=== PATIENT | male | born 1955 | race Caucasian/White ===

== ENCOUNTER 2020-03-15 15:39 | Outpatient (CLI) | payer OTHER, SELFPAY ==
--- NOTE | ~2020-03-15 | XR_ITS ---
EXAMINATION: XR abdomen/kub 1V DATE: 03/15/2020 16:15 INDICATION: One week of constipation TECHNIQUE: A supine view of the abdomen on 2 radiographs was obtained. COMPARISON: CT abdomen and pelvis dated 12/09/2016 FINDINGS: Small amount of gas and stool scattered throughout the colon. No dilated loops of gas-filled bowel to suggest obstruction. A few phleboliths in the pelvis. Mild elevation of the left hemidiaphragm. Mild bilateral sacral iliac osteoarthritis. IMPRESSION: 1. Normal bowel gas pattern with small amount of colonic gas and stool. Reviewed, dictated and finalized at location A.
== END 2020-03-15 15:40 | disposition home or self-care (01) ==
LOC: ANHIMG 15:44
PROVIDERS: PCP Family Medicine; Visit Provider Family Medicine
DX: R10.9 Unspecified abdominal pain (principal)
CPT/HCPCS: 74018

== ENCOUNTER 2020-04-07 01:50 | Outpatient (CLI) | payer OTHER, SELFPAY ==
[2020-04-07 18:09] LABS: SARS-CoV-2 RNA PCR Negative
== END 2020-04-07 01:51 | disposition home or self-care (01) ==
LOC: ANHCOVIDDT 01:50
PROVIDERS: PCP Family Medicine; Visit Provider Internal Medicine Gastroenterology
DX: Z01.818 Encounter for other preprocedural examination (principal); Z11.59 Encounter for screening for other viral diseases
CPT/HCPCS: 87635; C9803; U0003

== ENCOUNTER 2020-04-10 03:06 | Day surgery (SDC) | payer OTHER, SELFPAY ==
[2020-04-03 14:06] VITALS: BMI 34.4
[2020-04-10 06:58] VITALS: BP 162/97; PULSE 63; RESP 18; TEMP 36.8; O2SAT 99; BMI 33.4
[2020-04-10] MEDS: LACTATED RINGERS 1,000 ML 150 ML IV CONT (07:08)
--- NOTE | 2020-04-10 07:49 | WPDANESEPPF ---
Anes - Initial Pre Proc Eval Procedure: Operation Date: 04/10/20 08:15 Proposed Procedures p Screening Colonoscopy - Bautista Vaughan MD Date/Time: 04/10/20 07:49 Surgeon: Bautista Vaughan MD Pre Op Diagnosis: neoplasm screening Patient Data Age: 65 Gender: M Height: 6 ft Weight: 111.9 kg Last Vital Signs Temp 36.8 C 04/10/20 06:58 Pulse 63 04/10/20 06:58 Resp 18 04/10/20 06:58 BP 162/97 H 04/10/20 06:58 Pulse Ox 99 04/10/20 06:58 Allergies Allergy/AdvReac Type Severity Reaction Status Date / Time No Known Allergies Allergy Verified 04/10/20 06:57 Home Medications Medication Instructions Recorded Confirmed Type peg 3350-electrolytes 236 240 ml PO Q10M #4000 ml 03/26/20 Rx gram-22.74 gram-6.74 gram-5.86 gram solution oxybutynin chloride 5 mg PO DAILY 04/03/20 04/03/20 History Patient hx anesthesia problems: none Family hx anesthesia problems: none PMF Family History Family History Father Family history of throat cancer, Onset Age: 75 Social History Social History Smoking status: Former smoker Smoking end date: 09/28/89 Alcohol intake: current Anes - Eval Final PreProcedure Day of Procedure 04/10/20 07:49 Patient weight: obese Heart: regular rate and rhythm Lungs: clear to auscultation Airway: Mallampati scale class II Neurological: alert and oriented Last oral intake: >/= 8 hours ASA classification: II Emergent: no Anesthetic plan: proceed Anesthesia type and monitoring: general GIVS and standard monitoring Informed Consent: The patient's anesthetic plan and its attendant risks and benefits were discussed with the patient/family/POA. Questions were solicited and answers provided to the satisfaction of the patient/family/POA.
--- NOTE | 2020-04-10 08:31 | PM.HPGS ---
History of Present Illness History of Present Illness Consent: Risks, benefits, and alternatives have been discussed and questions answered. Patient agrees to proceed with procedure. Chief complaint: neoplasm screening Narrative: Jorge L Madsen is a 65 year old male here for screening colonoscopy, also lower abdominal pain Review of Systems Constitutional: Constitutional: Denies headache(s) and Denies weakness Eyes: Eyes: Denies blurry vision ENT: Reports Normal hearing present, Denies headache(s) and Denies neck pain Cardiovascular: Cardiovascular: Denies chest pain and Denies dyspnea Respiratory: Respiratory: Denies dyspnea Gastrointestinal: Gastrointestinal: Reports no additional gastrointestinal complaints Genitourinary: Genitourinary: Denies dysuria Musculoskeletal: Musculoskeletal: Denies neck pain Integumentary/Breasts: Skin/Breast: Denies dry skin Neurologic: Reports Normal hearing present, Denies headache(s) and Denies weakness Psychiatric: Psychiatric: Denies anxiety Endocrine: Endocrine: Denies change in body appearance Hematologic/Lymphatic: Hematologic/Lymphatic: Denies easy bleeding Allergic/Immunologic: Allergic/Immunologic: Denies urticaria ON LICENSE OF [facility] Family History Family History Father Family history of throat cancer, Onset Age: 75 Social History Social History Smoking status: Former smoker Smoking end date: 09/28/89 Alcohol intake: current Meds Home Medications and Allergies Home Medications Medication Instructions Recorded Confirmed Type peg 3350-electrolytes 236 240 ml PO Q10M #4000 ml 03/26/20 Rx gram-22.74 gram-6.74 gram-5.86 gram solution oxybutynin chloride 5 mg PO DAILY 04/03/20 04/03/20 History Allergies Allergy/AdvReac Type Severity Reaction Status Date / Time No Known Allergies Allergy Verified 04/10/20 06:57 Vital Signs Vital Signs - 24 hr 04/10/20 06:58 Temperature 98.2 F Pulse Rate 63 Respiratory Rate 18 Blood Pressure 162/97 H Pulse Oximetry 99 Exam Const: General: comfortable and no acute distress HENMT: General nose exam: Normal nares present Eyes: General: appearance normal, both eyes and all related structures Neck: Neck: no JVD Resp: Auscultation: clear to auscultation bilaterally Cardio: Rate: regular rate Rhythm: regular rhythm GI: Inspection: non-distended GI Palp: Yes Soft to palpation Skin: General skin exam: normal color Neuro: General: gait normal Speech: normal speech Extrem: General: normal to inspection Psych: Mental Status: mental status grossly normal Assessment and Plan Assessment and plan (1) Abdominal pain: Code(s): R10.9 - Unspecified abdominal pain Status: Acute Assessment and Plan: intermittent in lower abdomen with change in bowel habits, using laxative prn (2) Constipation: Code(s): K59.00 - Constipation, unspecified Status: Acute (3) Colon cancer screening: Code(s): Z12.11 - Encounter for screening for malignant neoplasm of colon Status: Acute Assessment and Plan: never had a colonoscopy
[2020-04-10 09:05] VITALS: BP 148/81; PULSE 77; RESP 24; O2SAT 94
[2020-04-10 09:15] VITALS: BP 135/88; PULSE 77; RESP 24; O2SAT 94
[2020-04-10 09:24] VITALS: BP 158/97; PULSE 77; RESP 24; O2SAT 95
--- NOTE | 2020-04-10 09:51 | SUR.PHASEII ---
Pt coughing upon first assessment in post-op. Denies SOB or chest pain. LLL faint expiratory wheezes, cut clear upon discharge. Informed pt to report any SOB, chest pain, or fever to PCP. Pt stated understanding.
== END 2020-04-10 09:55 | disposition home or self-care (01) ==
PROVIDERS: PCP Family Medicine; Visit Provider Internal Medicine Gastroenterology
PROC: 0DJD8ZZ Inspection of Lower Intestinal Tract, Via Natural or Artificial Opening Endoscopic (ICD-10-PCS; CPT 45378; principal; 2020-04-10 08:15)
DX: Z12.11 Encounter for screening for malignant neoplasm of colon (principal); D12.5 Benign neoplasm of sigmoid colon; K57.30 Diverticulosis of large intestine without perforation or abscess without bleeding; E66.9 Obesity, unspecified; Z68.33 Body mass index [BMI] 33.0-33.9, adult; Z87.891 Personal history of nicotine dependence
CPT/HCPCS: 45385; 88305; J2704; J7120

== ENCOUNTER → 2020-08-14 11:14 | Outpatient (CLI) | payer OTHER, SELFPAY ==
--- NOTE | ~2020-08-14 | CT_ITS ---
EXAMINATION: CT abdomen wo con DATE: 08/14/2020 11:34 INDICATION: Umbilical hernia TECHNIQUE: Computed tomography (CT) of the abdomen was performed without intravenous contrast. Automa emelyn exposure control and iterative reconstruction technique were employed. Exam dose: 702.18 mGy-cm total exam DLP. COMPARISON: 12/09/[address] abdomen pelvis examination 03/15/2020 KUB FINDINGS: Middle and right lower lobe calcified pulmonary granulomas. No infiltrate or consolidation at the lung bases. Normal heart size. No pericardial or pleural effusion. Small sliding hiatal hernia. The liver, gallbladder, bile ducts, spleen, pancreas, pancreatic duct and adrenal glands are unremark able. Approximately 16 x 20 mm exophytic lesion at the upper mean attenuation is 27 Hounsfield units. Pole of the right kidney is mildly increased in size compared to approximately 14 x 18 mm dimension on 11/26. No other renal mass lesion is noted. No urinary tract calculus or hydroureteronephrosis. There is atherosclerotic calcification and tortuosity of the abdominal aorta but no aneurysm. There i s calcification of the iliac arteries. No intraperitoneal or retroperitoneal mass lesion or adenopathy is noted otherwise. No ascites. Normal appendix. There are numerous diverticula of the sigmoid and descending colon but no CT evidence of diverticulit is. No bowel obstruction, bowel wall thickening, pneumatosis or peritoneal free air is evident. Small fat-containing umbilical hernia. Bilateral L5 pars interarticularis defects with associated grade 2 anterolisthesis at L5-S1. Severe degenerative disc disease at L5-S1. Diffuse idiopathic skeletal hyperostosis of the lower thoracic spine. Moderate osteopenia. IMPRESSION: Small sliding hiatal hernia Small fat-containing umbilical hernia 16 x 20 mm exophytic lesion at the upper pole of the right kidney with mean attenuation of 27 Hounsfi eld units, slightly increased in size since 12/09/2016. Consider renal ultrasound correlation. Diverticulosis of the left colon; no CT evidence of diverticulitis Again noted are bilateral L5 pars inter-articularis defects with grade 2 anterolisthesis and severe d egenerative disc disease at L5-S1 Reviewed, dictated and finalized at Location A. Reviewed, dictated and finalized at location B. SORTER IMPRESSION: Small sliding hiatal hernia Small fat-containing umbilical hernia 16 x 20 mm exophytic lesion at the upper pole of the right kidney with mean att enuation of 27 Hounsfield units, slightly increased in size since 12/09/2016. Co nsider renal ultrasound correlation. Diverticulosis of the left colon; no CT evidence of diverticulitis Again noted are bilateral L5 pars inter-articularis defects with grade 2 katherin listhesis and severe degenerative disc disease at L5-S1
== END ==
PROVIDERS: PCP Family Medicine; Visit Provider Surgery
DX: K42.9 Umbilical hernia without obstruction or gangrene (principal); M47.817 Spondylosis without myelopathy or radiculopathy, lumbosacral region; N28.89 Other specified disorders of kidney and ureter; K57.30 Diverticulosis of large intestine without perforation or abscess without bleeding
CPT/HCPCS: 74150

== ENCOUNTER 2022-10-01 11:48 | Outpatient (CLI) | payer MEDICARE, OTHER, SELFPAY ==
--- NOTE | ~2022-10-01 | XR_ITS ---
Left Knee Technique: AP, lateral, and sunrise views were obtained. Clinical History: Pain Findings: No fracture or dislocation is seen. Osseous alignment is anatomic. Joint spaces are preserv ed without degenerative or erosive change. Soft tissues are unremarkable. No joint effusion is seen. Impression: Unremarkable left knee radiographs. Reviewed, dictated and finalized at location . H SUPERVISOR Impression: Unremarkable left knee radiographs.
== END 2022-10-01 11:49 | disposition home or self-care (01) ==
LOC: ANHIMG 11:55
PROVIDERS: PCP Family Medicine; Visit Provider Nurse Practitioner Gerontology
DX: M25.562 Pain in left knee (principal)
CPT/HCPCS: 73564

== ENCOUNTER 2023-03-19 10:05 | Outpatient (CLI) | payer MEDICARE, OTHER, SELFPAY ==
--- NOTE | ~2023-03-19 | US_ITS ---
Abdominal Sonogram: Real-time sonographic imaging of the abdomen was performed. Clinical History: Abnormal serum enzyme levels Findings: The liver appears echogenic, with no evidence of mass lesion or bile duct dilatation. Main portal vein demonstrates normal direction of flow. The spleen is normal in size without evidence of focal lesion. The gallbladder is well distended, and appears normal with no evidence of gallstone or wall thickening. The common bile duct measures 3 mm. The visualized pancreas, aorta, and IVC are un remarkable. The right kidney measures 12.8 cm in length and the left kidney measures 11.3 cm. There is no hydronephrosis or renal calculus. Impression: Diffuse fatty infiltration of the liver. Reviewed, dictated and finalized at location M. Impression: Diffuse fatty infiltration of the liver.
== END 2023-03-19 10:06 | disposition home or self-care (01) ==
PROVIDERS: PCP Family Medicine; Visit Provider Nurse Practitioner Gerontology
DX: R74.8 Abnormal levels of other serum enzymes (principal); K76.0 Fatty (change of) liver, not elsewhere classified
CPT/HCPCS: 76700